=== PATIENT | male | born 1950 | race Caucasian/White ===

== ENCOUNTER 2016-09-21 07:43 | Emergency (ER) | payer MEDICAID ==
[2016-09-21 07:49] VITALS: RESP 14; TEMP 98.4; O2SAT 94
[2016-09-21] MEDS ORDERED: OXYCODONE/APAP 5/325 TAB PO ONE (08:44)
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
[2016-09-21] MEDS ORDERED: SULFAMETHOX/TMP 800/160 MG 1 TAB PO ONE (11:09)
[2016-09-21] MEDS ORDERED: CEPHALEXIN 500 MG CAP PO ONE (11:09)
[2016-09-21 12:01] VITALS: BP 142/78; PULSE 70
== END 2016-09-21 12:10 | disposition home or self-care (01) ==
DX: I87.2 Venous insufficiency (chronic) (peripheral) (principal); L03.115 Cellulitis of right lower limb; L03.116 Cellulitis of left lower limb; F17.200 Nicotine dependence, unspecified, uncomplicated

== ENCOUNTER 2017-05-05 02:13 | Emergency (ER) | payer OTHER, MEDICAID ==
--- NOTE | 2017-05-05 02:18 | EDPHY ---
H & P HPI/ROS: HPI CHIEF COMPLAINT: Alcohol intoxication, medical clearance for fpc HISTORY OF PRESENT ILLNESS: Patient is a 67-year-old male, he is brought in by EMS intoxicated with alcohol, however has a steady gait, answers my questions appropriately and has a warrant for his rest and is brought in for medical clearance for fpc. Patient here complaining of chronic bilateral leg pain. Past Medical History: Chronic venous stasis, peripheral vascular disease, alcoholism, homelessness chronic left leg wound. Past Surgical History: No recent surgery Social History: Homeless, daily alcohol use. Family History: Noncontributory ROS REVIEW OF SYSTEMS: A comprehensive 10 point review of systems is otherwise negative aside from elements mentioned in the history of present illness. Exam Constitutional appears well nontoxic, triage nursing summary reviewed, vital signs reviewed, awake/alert. Eyes normal conjunctivae and sclera, EOMI, PERRLA. HENT normal inspection, atraumatic, moist mucus membranes, no epistaxis, neck supple/ no meningismus, no raccoon eyes. Respiratory clear to auscultation bilaterally, normal breath sounds, no respiratory distress, no wheezing. Cardiovascular rate normal, regular rhythm, no murmur, no edema, distal pulses normal. Gastrointestinal soft, non-tender, no rebound, no guarding, normal bowel sounds, no distension, no pulsatile mass. Genitourinary no CVA tenderness. Musculoskeletal no midline vertebral tenderness, full range of motion, no calf swelling, no tenderness of extremities, no meningismus, good pulses, neurovascularly intact. Bilateral lower extremities are swollen. Worse on the right than left. Chronic pitting edema. The left lower extremity lateral aspect distal aspect shows a chronic healing wound. We have changes Jovan wrap and dressing. There is no russell pus. There is some mild erythema around it. Skin pink, warm, & dry, no rash, skin atraumatic. Neurologic awake, alert and oriented x 3, AAOx3, moves all 4 extremities equally, motor intact, sensory intact, CN II-XII intact, normal cerebellar, normal vision, normal speech. Psychiatric normal mood/affect. Heme/Lymph/Immune no lymphadenopathy. Differential Diagnosis: Includes but is not limited to in a particular order acute alcohol intoxication, chronic venous stasis, chronic peripheral disease, left lower extremity ulcer chronic Medical Decision Making: Plan for this patient check his vitals, medically cleared for fpc. Will evaluate his legs to make sure there is not an active infection. Re-evaluation: 0221: This patient is a chronic left lower extremity leg wound. Does not appear overtly infected to me. There is no crepitus. We have changed his dressing. There is mild erythema around it. This appears to be chronic. Will place on Keflex. I have medically cleared for fpc. 0235: Patient re-evaluated we did clean his left lower extremity leg wound. Mild erythema no russell purulence. No significant warmth. I will place on Keflex for coverage of this erythema. I do not feel that he needs to be hospitalized. Does not have a fever. He appears well otherwise. Nontoxic appearing. Vital signs are stable. He will be medically cleared for fpc. New dressing applied. Source: Patient, Police, EMS - Medical/Surgical History Hx Asthma: No Hx Chronic Respiratory Disease: No Hx Diabetes: No Hx Cardiac Disease: No Hx Renal Disease: No Hx Cirrhosis: No Hx Alcoholism: No Hx HIV/AIDS: No Hx Splenectomy or Spleen Trauma: No Other PMH: 1. Peripheral vascular disease. 2. Chronic venous stasis ulceration of lower extremities. 3. Alcoholism. 4. Tobacco abuse - Social History Smoking Status: Current every day smoker Constitutional: Initial Vital Signs Temperature (C) 36.7 C 05/05/17 02:18 Heart Rate 90 05/05/17 02:18 Respiratory Rate 16 05/05/17 02:18 Blood Pressure 103/80 05/05/17 02:18 O2 Sat (%) 93 05/05/17 02:18 O2 Delivery Mode Room Air Allergies/Adverse Reactions: No Known Allergies Allergy (Verified 05/05/17 02:18) Home Medications: Medication Instructions Recorded Keflex 05/04/16 Cephalexin [Keflex] 500 mg PO Q6H #28 cap 05/12/16 oxyCODONE CR [Oxycontin] 10 mg PO BID #20 tab 05/12/16 Cephalexin [Keflex] 500 mg PO TID #20 cap 09/21/16 Sulfamethox/Tmp 800/160 mg 1 tab PO BID #14 tab 09/21/16 [Bactrim Ds] Cephalexin [Keflex (*)] 500 mg PO Q6H #28 cap 05/05/17 Departure - Departure Disposition: Home, Routine, Self-Care Clinical Impression: Alcoholic intoxication Qualifiers: Complication of substance-induced condition: uncomplicated Qualified Code(s): F10.920 - Alcohol use, unspecified with intoxication, uncomplicated Wound of left lower extremity Qualifiers: Encounter type: initial encounter Qualified Code(s): S81.802A - Unspecified open wound, left lower leg, initial encounter Condition: Good Instructions: Alcohol Intoxication (ED) Additional Instructions: 1. Medically cleared for fpc. Referrals: Patient,NotPresent [Unknown] - As per Instructions Prescriptions: Cephalexin [Keflex (*)] 500 mg PO Q6H #28 cap
--- NOTE | 2017-05-05 02:18 | EDPHY ---
H & P HPI/ROS: HPI CHIEF COMPLAINT: Alcohol intoxication, medical clearance for senior care HISTORY OF PRESENT ILLNESS: Patient is a 67-year-old male, he is brought in by EMS intoxicated with alcohol, however has a steady gait, answers my questions appropriately and has a warrant for his rest and is brought in for medical clearance for senior care. Patient here complaining of chronic bilateral leg pain. Past Medical History: Chronic venous stasis, peripheral vascular disease, alcoholism, homelessness chronic left leg wound. Past Surgical History: No recent surgery Social History: Homeless, daily alcohol use. Family History: Noncontributory ROS REVIEW OF SYSTEMS: A comprehensive 10 point review of systems is otherwise negative aside from elements mentioned in the history of present illness. Exam Constitutional appears well nontoxic, triage nursing summary reviewed, vital signs reviewed, awake/alert. Eyes normal conjunctivae and sclera, EOMI, PERRLA. HENT normal inspection, atraumatic, moist mucus membranes, no epistaxis, neck supple/ no meningismus, no raccoon eyes. Respiratory clear to auscultation bilaterally, normal breath sounds, no respiratory distress, no wheezing. Cardiovascular rate normal, regular rhythm, no murmur, no edema, distal pulses normal. Gastrointestinal soft, non-tender, no rebound, no guarding, normal bowel sounds, no distension, no pulsatile mass. Genitourinary no CVA tenderness. Musculoskeletal no midline vertebral tenderness, full range of motion, no calf swelling, no tenderness of extremities, no meningismus, good pulses, neurovascularly intact. Bilateral lower extremities are swollen. Worse on the right than left. Chronic pitting edema. The left lower extremity lateral aspect distal aspect shows a chronic healing wound. We have changes Jovan wrap and dressing. There is no russell pus. There is some mild erythema around it. Skin pink, warm, & dry, no rash, skin atraumatic. Neurologic awake, alert and oriented x 3, AAOx3, moves all 4 extremities equally, motor intact, sensory intact, CN II-XII intact, normal cerebellar, normal vision, normal speech. Psychiatric normal mood/affect. Heme/Lymph/Immune no lymphadenopathy. Differential Diagnosis: Includes but is not limited to in a particular order acute alcohol intoxication, chronic venous stasis, chronic peripheral disease, left lower extremity ulcer chronic Medical Decision Making: Plan for this patient check his vitals, medically cleared for senior care. Will evaluate his legs to make sure there is not an active infection. Re-evaluation: 0221: This patient is a chronic left lower extremity leg wound. Does not appear overtly infected to me. There is no crepitus. We have changed his dressing. There is mild erythema around it. This appears to be chronic. Will place on Keflex. I have medically cleared for senior care. 0235: Patient re-evaluated we did clean his left lower extremity leg wound. Mild erythema no russell purulence. No significant warmth. I will place on Keflex for coverage of this erythema. I do not feel that he needs to be hospitalized. Does not have a fever. He appears well otherwise. Nontoxic appearing. Vital signs are stable. He will be medically cleared for senior care. New dressing applied. Source: Patient, Police, EMS - Medical/Surgical History Hx Asthma: No Hx Chronic Respiratory Disease: No Hx Diabetes: No Hx Cardiac Disease: No Hx Renal Disease: No Hx Cirrhosis: No Hx Alcoholism: No Hx HIV/AIDS: No Hx Splenectomy or Spleen Trauma: No Other PMH: 1. Peripheral vascular disease. 2. Chronic venous stasis ulceration of lower extremities. 3. Alcoholism. 4. Tobacco abuse - Social History Smoking Status: Current every day smoker Constitutional: Initial Vital Signs Temperature (C) 36.7 C 05/05/17 02:18 Heart Rate 90 05/05/17 02:18 Respiratory Rate 16 05/05/17 02:18 Blood Pressure 103/80 05/05/17 02:18 O2 Sat (%) 93 05/05/17 02:18 O2 Delivery Mode Room Air Allergies/Adverse Reactions: No Known Allergies Allergy (Verified 05/05/17 02:18) Home Medications: Medication Instructions Recorded Keflex 05/04/16 Cephalexin [Keflex] 500 mg PO Q6H #28 cap 05/12/16 oxyCODONE CR [Oxycontin] 10 mg PO BID #20 tab 05/12/16 Cephalexin [Keflex] 500 mg PO TID #20 cap 09/21/16 Sulfamethox/Tmp 800/160 mg 1 tab PO BID #14 tab 09/21/16 [Bactrim Ds] Cephalexin [Keflex (*)] 500 mg PO Q6H #28 cap 05/05/17 Departure - Departure Disposition: Home, Routine, Self-Care Clinical Impression: Alcoholic intoxication Qualifiers: Complication of substance-induced condition: uncomplicated Qualified Code(s): F10.920 - Alcohol use, unspecified with intoxication, uncomplicated Wound of left lower extremity Qualifiers: Encounter type: initial encounter Qualified Code(s): S81.802A - Unspecified open wound, left lower leg, initial encounter Condition: Good Instructions: Alcohol Intoxication (ED) Additional Instructions: 1. Medically cleared for senior care. Referrals: Patient,NotPresent [Unknown] - As per Instructions Prescriptions: Cephalexin [Keflex (*)] 500 mg PO Q6H #28 cap
--- NOTE | 2017-05-05 02:18 | EDPHY ---
H & P HPI/ROS: HPI CHIEF COMPLAINT: Alcohol intoxication, medical clearance for fdc HISTORY OF PRESENT ILLNESS: Patient is a 67-year-old male, he is brought in by EMS intoxicated with alcohol, however has a steady gait, answers my questions appropriately and has a warrant for his rest and is brought in for medical clearance for fdc. Patient here complaining of chronic bilateral leg pain. Past Medical History: Chronic venous stasis, peripheral vascular disease, alcoholism, homelessness chronic left leg wound. Past Surgical History: No recent surgery Social History: Homeless, daily alcohol use. Family History: Noncontributory ROS REVIEW OF SYSTEMS: A comprehensive 10 point review of systems is otherwise negative aside from elements mentioned in the history of present illness. Exam Constitutional appears well nontoxic, triage nursing summary reviewed, vital signs reviewed, awake/alert. Eyes normal conjunctivae and sclera, EOMI, PERRLA. HENT normal inspection, atraumatic, moist mucus membranes, no epistaxis, neck supple/ no meningismus, no raccoon eyes. Respiratory clear to auscultation bilaterally, normal breath sounds, no respiratory distress, no wheezing. Cardiovascular rate normal, regular rhythm, no murmur, no edema, distal pulses normal. Gastrointestinal soft, non-tender, no rebound, no guarding, normal bowel sounds, no distension, no pulsatile mass. Genitourinary no CVA tenderness. Musculoskeletal no midline vertebral tenderness, full range of motion, no calf swelling, no tenderness of extremities, no meningismus, good pulses, neurovascularly intact. Bilateral lower extremities are swollen. Worse on the right than left. Chronic pitting edema. The left lower extremity lateral aspect distal aspect shows a chronic healing wound. We have changes Jovan wrap and dressing. There is no russell pus. There is some mild erythema around it. Skin pink, warm, & dry, no rash, skin atraumatic. Neurologic awake, alert and oriented x 3, AAOx3, moves all 4 extremities equally, motor intact, sensory intact, CN II-XII intact, normal cerebellar, normal vision, normal speech. Psychiatric normal mood/affect. Heme/Lymph/Immune no lymphadenopathy. Differential Diagnosis: Includes but is not limited to in a particular order acute alcohol intoxication, chronic venous stasis, chronic peripheral disease, left lower extremity ulcer chronic Medical Decision Making: Plan for this patient check his vitals, medically cleared for fdc. Will evaluate his legs to make sure there is not an active infection. Re-evaluation: 0221: This patient is a chronic left lower extremity leg wound. Does not appear overtly infected to me. There is no crepitus. We have changed his dressing. There is mild erythema around it. This appears to be chronic. Will place on Keflex. I have medically cleared for fdc. 0235: Patient re-evaluated we did clean his left lower extremity leg wound. Mild erythema no russell purulence. No significant warmth. I will place on Keflex for coverage of this erythema. I do not feel that he needs to be hospitalized. Does not have a fever. He appears well otherwise. Nontoxic appearing. Vital signs are stable. He will be medically cleared for fdc. New dressing applied. Source: Patient, Police, EMS - Medical/Surgical History Hx Asthma: No Hx Chronic Respiratory Disease: No Hx Diabetes: No Hx Cardiac Disease: No Hx Renal Disease: No Hx Cirrhosis: No Hx Alcoholism: No Hx HIV/AIDS: No Hx Splenectomy or Spleen Trauma: No Other PMH: 1. Peripheral vascular disease. 2. Chronic venous stasis ulceration of lower extremities. 3. Alcoholism. 4. Tobacco abuse - Social History Smoking Status: Current every day smoker Constitutional: Initial Vital Signs Temperature (C) 36.7 C 05/05/17 02:18 Heart Rate 90 05/05/17 02:18 Respiratory Rate 16 05/05/17 02:18 Blood Pressure 103/80 05/05/17 02:18 O2 Sat (%) 93 05/05/17 02:18 O2 Delivery Mode Room Air Allergies/Adverse Reactions: No Known Allergies Allergy (Verified 05/05/17 02:18) Home Medications: Medication Instructions Recorded Keflex 05/04/16 Cephalexin [Keflex] 500 mg PO Q6H #28 cap 05/12/16 oxyCODONE CR [Oxycontin] 10 mg PO BID #20 tab 05/12/16 Cephalexin [Keflex] 500 mg PO TID #20 cap 09/21/16 Sulfamethox/Tmp 800/160 mg 1 tab PO BID #14 tab 09/21/16 [Bactrim Ds] Cephalexin [Keflex (*)] 500 mg PO Q6H #28 cap 05/05/17 Departure - Departure Disposition: Home, Routine, Self-Care Clinical Impression: Alcoholic intoxication Qualifiers: Complication of substance-induced condition: uncomplicated Qualified Code(s): F10.920 - Alcohol use, unspecified with intoxication, uncomplicated Wound of left lower extremity Qualifiers: Encounter type: initial encounter Qualified Code(s): S81.802A - Unspecified open wound, left lower leg, initial encounter Condition: Good Instructions: Alcohol Intoxication (ED) Additional Instructions: 1. Medically cleared for fdc. Referrals: Patient,NotPresent [Unknown] - As per Instructions Prescriptions: Cephalexin [Keflex (*)] 500 mg PO Q6H #28 cap
[2017-05-05 02:20] VITALS: BP 103/80; PULSE 90; RESP 16; TEMP 98.1; O2SAT 93
== END 2017-05-05 02:44 ==
LOC: EDUNIT#
DX: S81.802A Unspecified open wound, left lower leg, initial encounter (principal); F10.229 Alcohol dependence with intoxication, unspecified; F17.200 Nicotine dependence, unspecified, uncomplicated; X58.XXXA Exposure to other specified factors, initial encounter; Y92.9 Unspecified place or not applicable; Z59.0 Homelessness

== ENCOUNTER 2017-11-29 23:11 | Emergency (ER) | payer MEDICAID, OTHER ==
--- NOTE | 2017-11-29 23:58 | EDPHY ---
H & P Stated Complaint: EtOH Time Seen by Provider: 11/29/17 23:36 HPI/ROS: HPI The patient presents with alcohol intoxication brought in for medical evaluation. He is brought in by EMS after police were called because he was intoxicated in public. Patient admits to drinking several alcoholic drinks tonight and had vodka on him when police picked him up. He has multiple ED visits for alcohol intoxication. He is complaining of left leg pain and leg wound. He says he has leg pain frequently and has been evaluated for this. He has a chronic venous stasis ulcer. Looking at his external records, he has multiple ER visits for alcohol intoxication and left leg pain. It does not seem that his leg wound or pain is any worse than usual based on these records. He does not have a fever, numbness or tingling of his leg. REVIEW OF SYSTEMS Constitutional: No fever, no chills. Eyes: No discharge. ENT: No sore throat. Cardiovascular: No chest pain, no palpitations. Respiratory: No cough, no shortness of breath. Gastrointestinal: No abdominal pain, no vomiting. Genitourinary: No hematuria. Musculoskeletal: No back pain. Skin: No rashes. Neurological: No headache. PMHx: Chronic venous stasis Soc Hx: Homeless, alcohol abuse, cigarette smoker PHYSICAL General Appearance: Obviously intoxicated in no acute distress Eyes: Pupils equal and round no pallor or injection ENT, Mouth: Mucous membranes moist Respiratory: There are no retractions, lungs are clear to auscultation Cardiovascular: Regular rate and rhythm Gastrointestinal: Abdomen is soft and non-tender, no masses, bowel sounds normal Neurological: A&O, moves all extremities Skin: Warm and dry, no rashes Musculoskeletal: Neck is supple non tender Extremities: Left leg is edematous, with 6 cm x 3 cm ulceration of the left lower lateral leg, base of ulcer with granulation tissue, there is no discharge expressed the leg is warm, sensation is intact to light touch Psychiatric: Patient is oriented X 3, there is no agitation Source: Patient, EMS, Old records Exam Limitations: Intoxication - Personal History Current Tetanus Diphtheria and Acellular Pertussis (TDAP): Unsure - Medical/Surgical History Hx Asthma: No Hx Chronic Respiratory Disease: No Hx Diabetes: No Hx Cardiac Disease: No Hx Renal Disease: No Hx Cirrhosis: No Hx Alcoholism: No Hx HIV/AIDS: No Hx Splenectomy or Spleen Trauma: No Other PMH: 1. Peripheral vascular disease. 2. Chronic venous stasis ulceration of lower extremities. 3. Alcoholism. 4. Tobacco abuse - Social History Smoking Status: Current every day smoker Constitutional: Initial Vital Signs Temperature (C) 36.4 C 11/29/17 23:15 Heart Rate 74 11/29/17 23:15 Respiratory Rate 16 11/29/17 23:15 Blood Pressure 131/74 H 11/29/17 23:15 O2 Sat (%) 96 11/29/17 23:15 O2 Delivery Mode Room Air Allergies/Adverse Reactions: No Known Allergies Allergy (Verified 11/29/17 23:15) Home Medications: Medication Instructions Recorded Keflex 05/04/16 oxyCODONE CR [Oxycontin] 10 mg PO BID #20 tab 05/12/16 Sulfamethox/Tmp 800/160 mg 1 tab PO BID #14 tab 09/21/16 [Bactrim Ds] Medical Decision Making Differential Diagnosis: 67-year-old male with history of alcohol intoxication, peripheral vascular disease, chronic left leg wound presents brought in by ambulance for medical clearance for the [facility]. He is clearly intoxicated, vital signs are unremarkable. He does have what appears to be a chronic left lower extremity wound related to vascular insufficiency with no sign of superinfection. He has warmth to his foot, full range of motion of his toes, no numbness or tingling to suggest ischemic limb. Plan for wound care to be performed here. Wound was cleansed and dressing was applied. The patient is not accepted at the [facility] because of prior history there. He was allowed to sleep in the emergency department until he was clinically sober and then he was discharged. Departure - Departure Disposition: Home, Routine, Self-Care Clinical Impression: Venous stasis ulcer Qualifiers: Venous stasis ulcer site: other part of lower leg Varicose vein presence: without varicose veins Laterality: left Non-pressure ulcer stage: with muscle involvement without evidence of necrosis Qualified Code(s): I87.2 - Venous insufficiency (chronic) (peripheral) Alcoholic intoxication Qualifiers: Complication of substance-induced condition: with delirium Qualified Code(s): F10.921 - Alcohol use, unspecified with intoxication delirium Condition: Good Instructions: Alcohol Intoxication (ED), Venous Insufficiency (DC), Chronic Wounds (ED) Referrals: [facility] [Outside] - As per Instructions
[2017-11-30] MEDS ORDERED: CHLORDIAZEPOXIDE 25MG PREPK#6 BTL TAKEHOME ONE (01:58)
[2017-11-30 06:23] VITALS: BP 131/74
== END 2017-11-30 06:23 | disposition home or self-care (01) ==
LOC: EDUNIT# → EDBD
DX: F10.921 Alcohol use, unspecified with intoxication delirium (principal); I87.2 Venous insufficiency (chronic) (peripheral); F17.210 Nicotine dependence, cigarettes, uncomplicated

== ENCOUNTER 2018-05-18 20:24 | Emergency (ER) | payer OTHER ==
--- NOTE | 2018-05-18 20:31 | EDPHY ---
H & P Time Seen by Provider: 05/18/18 20:31 HPI/ROS: HPI CHIEF COMPLAINT: Alcohol intoxication HISTORY OF PRESENT ILLNESS: This is a very pleasant 68-year-old male he arrives to the emergency room by EMS on an [facility] hold for acute alcohol intoxication. Patient was contacted his private residence. He was found slurring speech unsteady gait. Highly intoxicated alcohol the bottle vodka. He was brought in emergency room by EMS. He arrives intoxicated with alcohol. This time has no complaints. Past Medical History: Alcoholism Past Surgical History: Vein stripping Social History: Alcoholism with daily alcohol use. Family History: Noncontributory ROS REVIEW OF SYSTEMS: 10 Systems were reviewed and negative with the exception of the elements mentioned in the history of present illness. Exam Constitutional intoxicated, smells of alcohol, slurring speech triage nursing summary reviewed, vital signs reviewed, awake/alert. Eyes normal conjunctivae and sclera, EOMI, PERRLA. HENT normal inspection, atraumatic, moist mucus membranes, no epistaxis, neck supple/ no meningismus, no raccoon eyes. Respiratory clear to auscultation bilaterally, normal breath sounds, no respiratory distress, no wheezing. Cardiovascular rate normal, regular rhythm, no murmur, no edema, distal pulses normal. Gastrointestinal soft, non-tender, no rebound, no guarding, normal bowel sounds, no distension, no pulsatile mass. Genitourinary no CVA tenderness. Musculoskeletal no midline vertebral tenderness, full range of motion, no calf swelling, no tenderness of extremities, no meningismus, good pulses, neurovascularly intact. Skin pink, warm, & dry, no rash, skin atraumatic. Neurologic awake, alert and oriented x 3, AAOx3, moves all 4 extremities equally, motor intact, sensory intact, CN II-XII intact, normal vision, intoxicated, smells of alcohol slurring speech Psychiatric normal mood/affect. Heme/Lymph/Immune no lymphadenopathy. Differential Diagnosis: Includes but is not limited to in a particular order acute alcohol intoxication, alcohol abuse, dehydration, electrolyte disturbance Medical Decision Making: Plan for this patient breath alcohol. Monitor for worsening of symptoms. Re-evaluation: Breath alcohol level 213. 2214: signed over to Dr. Medrano at 10pm shift change. Patient pending sobriety. [facility]. Source: Patient, EMS - Medical/Surgical History Hx Asthma: No Hx Chronic Respiratory Disease: No Hx Diabetes: No Hx Cardiac Disease: No Hx Renal Disease: No Hx Cirrhosis: No Hx Alcoholism: No Hx HIV/AIDS: No Hx Splenectomy or Spleen Trauma: No Other PMH: 1. Peripheral vascular disease. 2. Chronic venous stasis ulceration of lower extremities. 3. Alcoholism. 4. Tobacco abuse - Social History Smoking Status: Current every day smoker Constitutional: Initial Vital Signs Temperature (C) 36 C 05/18/18 20:37 Heart Rate 77 05/18/18 20:37 Respiratory Rate 16 05/18/18 20:37 Blood Pressure 136/86 H 05/18/18 20:37 O2 Sat (%) 93 05/18/18 20:37 O2 Delivery Mode Room Air Allergies/Adverse Reactions: No Known Allergies Allergy (Verified 05/18/18 20:37) Home Medications: Medication Instructions Recorded NK [No Known Home Meds] 05/18/18 Departure - Departure Disposition: Home, Routine, Self-Care Clinical Impression: Alcoholic intoxication Qualifiers: Complication of substance-induced condition: uncomplicated Qualified Code(s): F10.920 - Alcohol use, unspecified with intoxication, uncomplicated Condition: Good Instructions: Alcohol Intoxication (ED), Abuse of Alcohol (ED) Referrals: NONE *PRIMARY CARE P,. [Primary Care Provider] - As per Instructions
[2018-05-19 05:49] VITALS: BP 154/74
== END 2018-05-19 05:54 | disposition home or self-care (01) ==
DX: F10.920 Alcohol use, unspecified with intoxication, uncomplicated (principal)

== ENCOUNTER 2018-08-09 23:51 | Emergency (ER) | payer OTHER ==
--- NOTE | 2018-08-09 23:58 | EDPHY ---
H & P Time Seen by Provider: 08/09/18 23:54 HPI/ROS: Chief Complaint: Alcohol intoxication HPI: 68-year-old homeless male with a history of chronic lymphedema, left greater than right secondary to past vein stripping. Patient also has an extensive history of chronic alcoholism. [place] the 05 24 bus. He called 911 complaining that "everything hurts". He has had multiple presentations to this hospital in the past for similar episodes. Denies any falls. Admits to drinking 2 pt of vodka this evening. No falls or head injury. No chest pain shortness of breath. No nausea or vomiting. ROS: 10 systems were reviewed and were negative except those elements noted in the HPI. PMH: Chronic lymphedema, chronic alcoholism Social History: No smoking, heavy daily alcohol, no recreational drug use Family History: non-contributory Physical Exam: Gen: Awake, Alert, No Distress HEENT: Nose: no rhinorrhea Eyes: PERRLA, EOMI Mouth: Moist mucosa Neck: Supple, no JVD Chest: nontender, lungs clear to auscultation Heart: S1, S2 normal, no murmur Abd: Soft, non-tender, no guarding Back: no CVA tenderness, no midline tenderness Ext: Moderate edema, healing ulcerative lesion on his left lateral leg which is chronic. No surrounding erythema. Skin: no rash Neuro: CN II-XII intact, Sensation grossly intact, Strength 5/5 in bilateral upper and lower extremities - Medical/Surgical History Hx Asthma: No Hx Chronic Respiratory Disease: No Hx Diabetes: No Hx Cardiac Disease: No Hx Renal Disease: No Hx Cirrhosis: No Hx Alcoholism: No Hx HIV/AIDS: No Hx Splenectomy or Spleen Trauma: No Other PMH: 1. Peripheral vascular disease. 2. Chronic venous stasis ulceration of lower extremities. 3. Alcoholism. 4. Tobacco abuse - Social History Smoking Status: Current every day smoker Constitutional: Initial Vital Signs Temperature (C) 36.7 C 08/09/18 23:55 Heart Rate 70 08/09/18 23:55 Respiratory Rate 20 08/09/18 23:55 Blood Pressure 139/94 H 08/09/18 23:55 O2 Sat (%) 94 08/09/18 23:55 O2 Delivery Mode Room Air Allergies/Adverse Reactions: No Known Allergies Allergy (Verified 11/14/18 20:37) Departure - Departure Disposition: Home, Routine, Self-Care Clinical Impression: Leg ulcer, Alcoholic intoxication, Alcohol dependence Condition: Good Instructions: Alcohol Intoxication (ED), Stasis Dermatitis (ED) Additional Instructions: Follow up at [facility] in 2-3 days for wound check. Referrals: [facility],. [Clinic] - As per Instructions
[2018-08-10 04:35] VITALS: BP 143/76
== END 2018-08-10 04:34 | disposition home or self-care (01) ==
LOC: EDUNIT#
DX: L97.929 Non-pressure chronic ulcer of unspecified part of left lower leg with unspecified severity (principal); F10.220 Alcohol dependence with intoxication, uncomplicated; I73.9 Peripheral vascular disease, unspecified

== ENCOUNTER 2018-09-11 01:39 | Inpatient (IN) | payer OTHER ==
[2018-09-11] MEDS ORDERED: VANCOMYCIN 1.5 GM in D5W 250 ML IV ONE (01:45)
--- NOTE | 2018-09-11 01:48 | EDPHY ---
H & P Stated Complaint: chronic left lower leg swelling, now with pain Time Seen by Provider: 09/11/18 01:46 HPI/ROS: HPI CHIEF COMPLAINT: Worsening left leg pain. HISTORY OF PRESENT ILLNESS: Patient is 68-year-old male, history of peripheral vascular disease, chronic lymphedema, and alcoholism, presents emergency room with left lower extremity worsening edema, pain, foul smell, drainage. Patient arrived to the emergency room by EMS with worsening left leg pain and swelling. He arrives to the emergency room is hemodynamically stable but complaining Of left leg pain. On exam here he has chronic lymphedema bilaterally, the left leg was wrapped in a dressing that has not been changed in a while, there is a foul odor with yellow drainage and pus. He is a rather large wound to the anterior lateral left lower extremity. Past Medical History: Alcoholism, peripheral vascular disease, venous stasis, chronic leg wound Past Surgical History: No recent surgery Social History: Homeless with daily alcohol use. Family History: Noncontributory ROS REVIEW OF SYSTEMS: 10 Systems were reviewed and negative with the exception of the elements mentioned in the history of present illness. Exam Constitutional triage nursing summary reviewed, vital signs reviewed, awake/ alert. Eyes normal conjunctivae and sclera, EOMI, PERRLA. HENT normal inspection, atraumatic, moist mucus membranes, no epistaxis, neck supple/ no meningismus, no raccoon eyes. Respiratory clear to auscultation bilaterally, normal breath sounds, no respiratory distress, no wheezing. Cardiovascular rate normal, regular rhythm, no murmur, no edema, distal pulses normal. Gastrointestinal soft, non-tender, no rebound, no guarding, normal bowel sounds, no distension, no pulsatile mass. Genitourinary no CVA tenderness. Musculoskeletal left lower extremity: Chronic lymphedema, 4+ pitting, anterior mid lateral left leg wound with foul smell and yellow/pus. No crepitus. no midline vertebral tenderness, full range of motion, no calf swelling, no tenderness of extremities, no meningismus, good pulses, neurovascularly intact. Skin pink, warm, & dry, no rash, skin atraumatic. Neurologic awake, alert and oriented x 3, AAOx3, moves all 4 extremities equally, motor intact, sensory intact, CN II-XII intact, normal cerebellar, normal vision, normal speech. Psychiatric normal mood/affect. Heme/Lymph/Immune no lymphadenopathy. Differential Diagnosis: Includes but is not limited to in a particular order left lower extremity cellulitis, left lower extremity chronic wound, abscess, chronic wound, wound infection, strep infection, MRSA infection Medical Decision Making: Plan for this patient IV establishment with blood cultures, lactic acid, inflammatory markers, x-ray left lower extremity, IV Vanco admission to the hospital. Re-evaluation: Left lower extremity x-ray reviewed negative for gas however ulcer seen on x- ray. Hardware in the ankle. Patient's labs reviewed. Patient noted to have a low white blood cell count. Patient's alcohol level elevated 361. [id number]: Spoke with Hospalist service, agree to admit. Dr. Alarcon. Source: Patient, EMS - Personal History Current Tetanus/Diphtheria Vaccine: Yes Current Tetanus Diphtheria and Acellular Pertussis (TDAP): Yes Tetanus Vaccine Date: 2015 - Medical/Surgical History Hx Asthma: No Hx Chronic Respiratory Disease: No Hx Diabetes: No Hx Cardiac Disease: No Hx Renal Disease: No Hx Cirrhosis: No Hx Alcoholism: No Hx HIV/AIDS: No Hx Splenectomy or Spleen Trauma: No Other PMH: 1. Peripheral vascular disease. 2. Chronic venous stasis ulceration of lower extremities. 3. Alcoholism. 4. Tobacco abuse - Social History Smoking Status: Current every day smoker Constitutional: Initial Vital Signs Temperature (C) 36.4 C 09/11/18 01:40 Heart Rate 69 09/11/18 01:40 Respiratory Rate 18 09/11/18 01:40 Blood Pressure 136/100 H 09/11/18 01:40 O2 Sat (%) 93 09/11/18 01:40 O2 Delivery Mode Nasal Cannula O2 (L/minute) 2 Allergies/Adverse Reactions: No Known Allergies Allergy (Verified 09/11/18 19:32) Home Medications: Medication Instructions Recorded oxyCODONE HCL [Oxycodone HCl] 10 mg PO TID PRN 09/11/18 Medical Decision Making - Data Points Laboratory Results: Laboratory Results 09/11/18 03:15 09/11/18 03:15 09/11/18 09/11/18 03:15 03:15 RPR Resp to Therapy Pending Hepatitis A Ab Total Pending HIV 1&2 Antibody Pending Medications Given: Folic Acid (Folic Acid) 1 mg PO DAILY MICAH Stop: 03/10/19 08:59 Last Admin: 09/11/18 10:00 Dose: Not Given Vancomycin HCl 1.5 gm/ Sodium (Chloride) 250 mls @ 166.667 mls/hr IV Q12H MICAH Stop: 10/11/18 15:59 Last Admin: 09/11/18 15:54 Dose: 250 mls Lorazepam (Ativan Injection) 0 mg IVP Q1H PRN; Protocol PRN Reason: Alcohol Withdrawal w/IV access Stop: 03/10/19 04:22 Last Admin: 09/11/18 06:38 Dose: 2 mg Multivitamins (Tab-A-Yoanna) 1 each PO DAILY MICAH Stop: 03/10/19 08:59 Last Admin: 09/11/18 10:00 Dose: Not Given Oxycodone HCl (Oxycodone Ir) 5 - 10 mg PO Q3HRS PRN PRN Reason: Pain, Severe Able to Take PO Stop: 09/21/18 04:21 Last Admin: 09/11/18 22:51 Dose: 10 mg Discontinued Medications Vancomycin HCl 1.5 gm/ Sodium (Chloride) 250 mls @ 166.67 mls/hr IV EDNOW ONE PRN Reason: Protocol Stop: 09/11/18 05:29 Last Admin: 09/11/18 03:52 Dose: 250 mls Departure - Departure Disposition: [facility] Clinical Impression: Venous stasis ulcer, Alcoholic intoxication Condition: Fair
[2018-09-11 03:54] LABS: PLATELET COUNT 65 10^3/uL (150-400)
[2018-09-11 03:55] LABS: INR 1.3 (0.83-1.16); PROTIME(PATIENT) 15.6 SEC (12.0-15.0)
[2018-09-11] MEDS ORDERED: VANCOMYCIN 1.5 GM in NS 250 ML IV ONE (04:00)
[2018-09-11] MEDS ORDERED: ONDANSETRON 4 MG/2 ML VIAL IVP PRN (04:22)
[2018-09-11] MEDS ORDERED: ONDANSETRON DISINTEGRATING 4 MG TAB PO PRN (04:22)
[2018-09-11] MEDS ORDERED: FLUMAZENIL 0.5 MG/5 ML MDV IVP PRN (04:23)
[2018-09-11] MEDS ORDERED: LORazepam 2 MG/ML INJ IVP PRN (04:23)
--- NOTE | 2018-09-11 05:43 | PDGENHP ---
History and Physical - Chief Complaint L leg pain - History of Present Illness 68 yo M w/ hx of PVD, cirrhosis, MRSA, non-healing ulcer of LLE, and AF presents with LLE pain. The patient presented via EMS reporting LLE pain, purulent discharge, and foul smell. During my evaluation the patient is fairly somnolent and not answering my questions. In the ED his evaluation was reassuring. He is afebrile with a normal WBC. He has a large, non-healing ulcer of the LLE with purulent discharge and surrounding erythema. He is hemodynamically stable. His BAL is elevated. He is being admitted for presumed cellulitis. Review of previous records in [facility] demonstrates multiple prior visits at other hospitals for complications of this non-healing ulcer. Records notable for hx of MRSA as well. Case discussed with ED physician Dr. Arriaga. History Information - Allergies/Home Medication List Allergies/Adverse Reactions: No Known Allergies Allergy (Verified 09/11/18 01:46) Home Medications: NK [No Known Home Meds] 09/11/18 [Last Taken Unknown] oxyCODONE HCL/ACETAMINOPHEN [Percocet 5-325 mg Tablet] 1 each PO 09/11/18 [Last Taken Unknown] I have personally reviewed and updated: family history, medical history - Past Medical History atrial fibrillation Additional medical history: Cirrhosis. Hep C. Peripheral vascular disease. ETOH use d/o - Surgical History Additional surgical history: ORIF L ankle - Family History Additional family history: Unable to obtain due to patient's mental status - Social History Smoking Status: Current every day smoker Review of Systems Review of Systems: Unable to obtain due to patient's mental status Physical Exam Physical Exam: Temp Pulse Resp BP Pulse Ox 36.4 C 61 18 148/93 H 96 09/11/18 01:40 09/11/18 03:53 09/11/18 03:53 09/11/18 03:53 09/11/18 03:57 Constitutional: chronically ill appearing, unkempt Eyes: PERRL, EOMI Ears, Nose, Mouth, Throat: moist mucous membranes, no oral mucosal ulcers Cardiovascular: regular rate and rhythym, systolic murmur Respiratory: no respiratory distress, no rales or rhonchi Gastrointestinal: normoactive bowel sounds, soft, non-tender abdomen Skin: warm, other (Large ulcer LLE with purulent drainage and surrounding erythema) Musculoskeletal: normal joint ROM, no joint effusions Neurologic: No weakness, No numbness Psychiatric: encephalopathic, poor memory Lab Data & Imaging Review 09/11/18 03:15 09/11/18 03:15 WBC 3.74 10^3/uL (3.80-9.50) L 09/11/18 03:15 RBC 4.91 10^6/uL (4.40-6.38) 09/11/18 03:15 Hgb 12.5 g/dL (13.7-17.5) L 09/11/18 03:15 Hct 41.2 % (40.0-51.0) 09/11/18 03:15 MCV 83.9 fL (81.5-99.8) 09/11/18 03:15 MCH 25.5 pg (27.9-34.1) L 09/11/18 03:15 MCHC 30.3 g/dL (32.4-36.7) L 09/11/18 03:15 RDW 21.7 % (11.5-15.2) H 09/11/18 03:15 Plt Count 65 10^3/uL (150-400) L 09/11/18 03:15 MPV 10.5 fL (8.7-11.7) 09/11/18 03:15 Neut % (Auto) 51.7 % (39.3-74.2) 09/11/18 03:15 Lymph % (Auto) 30.2 % (15.0-45.0) 09/11/18 03:15 Cocke % (Auto) 12.3 % (4.5-13.0) 09/11/18 03:15 Eos % (Auto) 4.8 % (0.6-7.6) 09/11/18 03:15 Baso % (Auto) 0.5 % (0.3-1.7) 09/11/18 03:15 Nucleat RBC Rel Count 0.0 % (0.0-0.2) 09/11/18 03:15 Absolute Neuts (auto) 1.93 10^3/uL (1.70-6.50) 09/11/18 03:15 Absolute Lymphs (auto) 1.13 10^3/uL (1.00-3.00) 09/11/18 03:15 Absolute Monos (auto) 0.46 10^3/uL (0.30-0.80) 09/11/18 03:15 Absolute Eos (auto) 0.18 10^3/uL (0.03-0.40) 09/11/18 03:15 Absolute Basos (auto) 0.02 10^3/uL (0.02-0.10) 09/11/18 03:15 Absolute Nucleated RBC 0.00 10^3/uL (0-0.01) 09/11/18 03:15 Immature Gran % 0.5 % (0.0-1.1) 09/11/18 03:15 Immature Gran # 0.02 10^3/uL (0.00-0.10) 09/11/18 03:15 Platelet Estimate DECREASED (ADEQ) L 09/11/18 03:15 Hypochromasia 1+ H 09/11/18 03:15 Oval Macrocytes 1+ H 09/11/18 03:15 ESR 23 MM/HR (0-20) H 09/11/18 03:15 PT 15.6 SEC (12.0-15.0) H 09/11/18 03:15 INR 1.30 (0.83-1.16) H 09/11/18 03:15 APTT 31.2 SEC (23.0-38.0) 09/11/18 03:15 Sodium 148 mEq/L (135-145) H 09/11/18 03:15 Potassium 4.1 mEq/L (3.5-5.2) 09/11/18 03:15 Chloride 112 mEq/L (97-110) H 09/11/18 03:15 Carbon Dioxide 27 mEq/l (22-31) 09/11/18 03:15 Anion Gap 9 mEq/L (6-14) 09/11/18 03:15 BUN 12 mg/dL (7-23) 09/11/18 03:15 Creatinine 0.8 mg/dL (0.7-1.3) 09/11/18 03:15 Estimated GFR > 60 09/11/18 03:15 Glucose 105 mg/dL (70-100) H 09/11/18 03:15 Calcium 8.6 mg/dL (8.5-10.4) 09/11/18 03:15 C-Reactive Protein < 5.0 mg/L (<10.0) 09/11/18 03:15 Ethyl Alcohol 361 mg/dL (0-10) H 09/11/18 03:15 Assessment & Plan Assessment: 68 yo M w/ hx of PVD, cirrhosis, MRSA, non-healing ulcer of LLE, and AF presents with cellulitis of non-healing ulcer. Plan: 1. Cellulitis - Involving chronic, non-healing ulcer of LLE. Review of outside records describes this as related to venous insufficiency. He has hx of ORIF to L ankle with hardware in place and also culture data positive for MRSA. - Vancomycin IV - Blood cultures ordered - ID and wound care consults placed - May need surgical consultation for I&D 2. ETOH use d/o - BAL 361 on admission. He is not showing any signs of withdrawal at this point but he is very high risk for this. - CIWA protocol ordered - Daily MVI, folate, thiamine 3. Cirrhosis - Due to ETOH And Hep C. Leukopenia and thrombocytopenia noted on laboratory work-up are likely related. - Will check LFTs Diet - Regular Code - Full Ppx - SCDs noting thrombocytopenia Dispo - Admit under observation status
[2018-09-11] MEDS ORDERED: ENOXAPARIN 40 MG/0.4 ML SYR SC SCH (09:00)
[2018-09-11] MEDS: FOLIC ACID 1 MG TAB PO SCH (10:00)
[2018-09-11] MEDS: MULTIVITAMINS 1 EACH TAB PO SCH (10:00)
--- NOTE | 2018-09-11 10:57 | HOSPPROG ---
Hospitalist Progress Note Assessment/Plan: 68 yo M w/ hx of PVD, cirrhosis, MRSA, non-healing ulcer of LLE, and AF presents with cellulitis of non-healing ulcer. First encounter, chart reviewed. * ? LLE cellulitis w associated underlying venous insufficiency, non healing wound -will ask surgery to see, may benefit from debridement -blood cx pending -Vancomycin -has hardware in place to the left ankle area -reviewed tib/fib x ray which shows edema -hx of MRSA *ETOH use -BAL 361 -CIWA, MVI, folate, thiamine -not responding (intoxicated) *Cirrhosis,alcohol induce, hepatitis C *thrombocytopenia, leukopenia *homelessness -patient is disheveled, had vomited *plan: continue abx for now, wound care, reviewed his care w Dr Plaza and Dr Baumann. >30 minutes following up and caring for patient. Subjective: Gary is sleeping, snoring loudly. Objective: Vital Signs Temp Pulse Resp BP Pulse Ox 36.6 C 93 20 118/77 95 09/11/18 07:50 09/11/18 07:50 09/11/18 07:50 09/11/18 07:50 09/11/18 07:50 09/10/18 09/11/18 09/12/18 04:59 05:59 05:59 Intake Total Balance PT 15.6 SEC (12.0-15.0) H 09/11/18 03:15 INR 1.30 (0.83-1.16) H 09/11/18 03:15 - Physical Exam Constitutional: chronically ill appearing, unkempt Cardiovascular: regular rate and rhythym, other (palpable dp pulse, lower ext swelling. Feet wth foul oder) Respiratory: no respiratory distress Gastrointestinal: normoactive bowel sounds, other (large and round) Skin: other (large wound on left lower ext - has some yellowish brown drainage, red around the edges) Neurologic: other (sleeping, intoxicated) ICD10 Worksheet Patient Problems: Problems Problem Status Onset Alcoholic intoxication Acute Venous stasis ulcer Acute
[2018-09-11] MEDS ORDERED: ceFAZolin 2 GM/DEXTROSE 100 ML IV SCH (12:00)
--- NOTE | 2018-09-11 12:55 | GCON ---
[f rep st] CONSULTATION INFECTIOUS DISEASE CONSULT DATE OF CONSULTATION: 09/11/2018 PHYSICIAN REQUESTING CONSULT: Dr. Lj Alarcon REASON FOR CONSULT: To assist in the management of this 68-year-old male with a nonhealing lower extremity ulceration with cellulitis. HISTORY OF PRESENT ILLNESS: Please note that the patient is heavily sedated with Ativan, and is unable to give me a history. In fact, the patient was snoring the entire time I examined him and tried to interview him. PREVIOUS MEDICAL HISTORY: 1. Chronic alcoholism. 2. Chronic homelessness. 3. Atrial fibrillation. 4. Peripheral vascular disease. 5. ? hepatitis C with cirrhosis. PREVIOUS SURGICAL HISTORY: ORIF of the left ankle, unclear when that was done. Regarding his present issues, from what I can ascertain from the chart, the patient has been seen at multiple outside hospitals recently (please note, I did attempt to access [facility], but I was locked out given password problems, and there was no one at the help desk). By report of the nurse, the patient was at [facility] 1 or 2 weeks ago for IV antibiotics, and was discharged on oral antibiotics that he did not take. He apparently has a history of MRSA. The patient presented via EMS, complaining of worsening left lower extremity pain and purulent discharge, as well as foul smell. He was found to have a large nonhealing ulcer of the left lower extremity with surrounding erythema. He was admitted with a diagnosis of cellulitis and a nonhealing wound, and prescribed vancomycin, given his history of MRSA. A plain film of the left lower extremity revealed acute postoperative changes of ORIF noted in the left ankle with fixation of the medial and lateral malleoli with associated degenerative changes. I am now asked to assist in his management. As outlined above, the patient is heavily sedated with Ativan and not able to respond to my questioning. REVIEW OF SYSTEMS: Unobtainable. Previous medical history as outlined above. ALLERGIES: No known drug allergies. SOCIAL HISTORY: The patient, from what I understand, is homeless and drinks heavily. He, by report, lives in [place] usually. History of tobacco. MEDICATIONS: Presently include folate, flumazenil, Zofran, vitamin B1, vancomycin 1.5 g IV q.12 hours. FAMILY HISTORY: Unobtainable. PHYSICAL EXAMINATION: VITAL SIGNS: T-current 37.2 equals T-max, heart rate is 90, blood pressure 133/84, 94% on 3 L. GENERAL: Overweight male, somnolent and snoring, looks nontoxic. HEENT: Atraumatic, normocephalic. Pupils are equal, round, and reactive to light, some chemosis in the left and right eyes. Anicteric. Mucous membranes are dry. I cannot visualize his oropharynx. NECK : Supple. No sinus process tenderness. CARDIOVASCULAR: Faint 1/6 to 2/6 systolic ejection murmur heard best right, left upper sternal border, and left lower sternal border. No gallops or rubs. LUNGS: Clear to auscultation anterolaterally with no rales, rhonchi or wheeze. ABDOMEN: Soft. No organomegaly or tenderness to palpation. No stigmata of end-stage liver disease. EXTREMITIES: The patient has evidence of chronic venous stasis changes with brawny erythema of both lower extremities and exfoliative and crusting of his lower extremities. The left lower extremity is notable for a fairly extensive elliptical superficial ulceration on the lateral aspect of his left lower extremity with a clean base. Please note, it is not malodorous on exam. The smell is coming from the patient's feet. The ulcer has a clean bed, although there is some surrounding blanching erythema, left greater than right, and perhaps increased warmth. The erythema is throughout his lower extremity, however, and circumferential. It is not tender at all. The patient has good dorsalis pedis pulses bilaterally, and his lower extremities have 1+ pitting edema bilaterally. There is no significant swelling of the left compared with right, they are fairly symmetric. The patient has onychomycosis of his toenails. SKIN: Also notable for erythematous papules noted on his forearms and upper chest, and some on his face. There is a small patch of erythema on his abdomen. NEUROLOGIC: The patient is somnolent, but moving all 4 extremities when I try to arouse him. LABORATORY DATA: Microbiologic data: Blood cultures x2 are pending. By report , history of MRSA. White blood cell count of 3.7, hematocrit 41, platelet count of 65. Albumin of 3.8. CRP of less than 5. BUN and creatinine 12/0.8. AST 162, ALT of 71, alkaline phosphatase 74. Blood alcohol level of 361. RADIOGRAPHIC DATA: As outlined above. IMPRESSION: 68-year-old male with tobacco use disorder, homelessness, and longstanding alcohol abuse who presents with a nonhealing probable venous stasis ulceration of his left lower extremity. On my exam, the wound is not malodorous; the smell is coming from his feet and not the wound, per se. Although the surrounding soft tissue has blanching erythema, at this time, it is difficult to tease out a component of cellulitis versus his entire presentation being secondary to venous stasis. Suspect the latter. If no improvement on antibiotics in the next 24 hours, would discontinue Vancomycin as outlined below. PLAN: 1. The patient needs his left lower extremity elevated to decrease edema. 2. I have also asked nurse to give patient a thorough shower. 3. Continue Vancomycin for 1 more day, and if no change in the appearance of his lower extremity, discontinue antibiotics, as this entire presentation is likely secondary to chronic venous stasis. 4. As I am unable to access [facility], and the patient does have a history of MRSA , would initiate contact isolation as you are for now. 5. Given the patient has an unexplained erythematous rash on his upper extremities and chest; will obtain RPR and HIV antibody tests. Does not look like scabies. 6. In the setting of chronic hepatitis C, will obtain hepatitis A total antibody to ensure that he is immune to this entity given outbreak of hepatitis A among the homeless, and risk of fulminant hepatitis A with concomitant chronic hepatitis C. 7. Dr. Plaza will be consulted for wound care advice moving forward, although given the patient's complex social situation, he may not be adherent to her recommendations moving forward. Thank you very much for consulting Infectious Diseases. We will continue to follow this patient with you. /[id number]/MODL MTDD
--- NOTE | 2018-09-11 14:40 | GCON ---
[f rep st] CONSULTATION CONSULT NOTE DATE OF CONSULTATION: 09/11/2018 CHIEF COMPLAINT: Venous leg ulcer. Information is obtained from chart review as the patient is not speaking with me. HISTORY OF PRESENT ILLNESS: 68-year-old with history of peripheral vascular disease, cirrhosis, MRSA , nonhealing ulcers of left lower extremity, and atrial fibrillation, presents with pain. His blood alcohol level was 361 on admission and he is currently somnolent. He has some erythema around the wo und and I was asked to consult for wound care. PAST MEDICAL HISTORY: As above. SOCIAL HISTORY: Unable to be obtained. REVIEW OF SYSTEMS: Unable to be obtained. PHYSICAL EXAM: VITAL SIGNS: 37.2, 90, 133/84,20, 94% on 3 L. GENERAL: Lying in bed sleeping. Crespo s not arouse to voice or to stimuli. HEENT: Normocephalic. LUNGS: No increased work of breathing. CARDIAC: Afib. LEG: He has a dry wound with fibrin at the base on the left lower extremity and a nother wound distal to this. There is redness around the wound, but it does not appear to be acutely infected. IMPRESSION AND PLAN: Gary Hale is a 68-year-old man with history of peripheral vascular disease and possible venous insufficiency, who has nonhealing ulcers to his lower extremity. I did not feel comfortable debriding him as he was unable to consent for this procedure. I did place honey on the w ounds in hopes for autolytic debridement. I believe this could be done at bedside. He would benefit from regular wound care and to evaluate if he has venous insufficiency. Per report, he also has diogo sing challenges and so this may be difficult. We will continue to follow. /[id number]/MODL
[2018-09-11] MEDS: VANCOMYCIN 1.5 GM in NS 250 ML IV SCH (15:54)
[2018-09-11] MEDS: oxyCODONE IR 5 MG TAB PO PRN ×2 (18:37→22:51)
[2018-09-12] MEDS: VANCOMYCIN 1.5 GM in NS 250 ML IV SCH (04:00)
[2018-09-12] MEDS: oxyCODONE IR 5 MG TAB PO PRN ×6 (04:02→22:04)
[2018-09-12 05:08] LABS: HEPATITIS A ANTIBODY TOTAL NEGATIVE (NEGATIVE); HIV TYPE 1 AND 2 NEGATIVE (NEGATIVE)
[2018-09-12] MEDS: FOLIC ACID 1 MG TAB PO SCH (08:32)
[2018-09-12] MEDS: MULTIVITAMINS 1 EACH TAB PO SCH (08:32)
--- NOTE | 2018-09-12 11:46 | WOCRNPDOC ---
OZ Advanced Assessment Note - Skin Integrity Problem, Advanced Assess Left Lower Lateral Leg Exudate Amount: None Exudate Characteristic(s): Dried Kanika Wound Tissue: Scarred Wound Bed Constitution: Granulation Tissue (60%), Adhered Slough (40%) Wound Edges: Epithelizing, Attached Site Measurement - Head-to-Toe Length X Width X Depth (cm): 7x4.1x1 Skin Integrity Problem Comment: Per Annabel PRATT wound was mechanically debrided this morning by her. Wound bed is dried and per patient report painful. Covered wound with moistened saline. Wound care will follow and patient will follow up at outpatient wound healing center for follow up care. Ed IRELAND in room for care. Left Lateral Ankle Dressing Type: Open to Air Exudate Amount: None Exudate Characteristic(s): Dried Wound Bed Constitution: Red/[place] - Non Granular Tissue Site Measurement - Head-to-Toe Length X Width X Depth (cm): 1.2x1x0.5 Skin Integrity Problem Comment: Small full thickness wound with dried exudate. Unable to assess wound bed until it is remoistened. Wound care will follow this patient.
--- NOTE | 2018-09-12 14:18 | HOSPPROG ---
Hospitalist Progress Note Assessment/Plan: 68 yo M w/ hx of PVD, cirrhosis, MRSA, non-healing ulcer of LLE, and AF presents with cellulitis of non-healing ulcer. First encounter, chart reviewed. * LLE cellulitis w associated underlying venous insufficiency, non healing wound -appreciate surgery consult, may benefit from debridement -blood cx ngtd -Vancomycin -has hardware in place to the left ankle area -reviewed tib/fib x ray which shows edema -hx of MRSA *ETOH use -BAL 361 -CIWA, MVI, folate, thiamine *AMS -better -cont support *Cirrhosis,alcohol induce, hepatitis C *thrombocytopenia, leukopenia *homelessness -patient is disheveled *plan: continue abx for now, wound care, requires further IV abx and care in the hospital setting change to inpt status Subjective: No pain. Feeling a bit better. No withdrawl yet. Objective: Vital Signs Temp Pulse Resp BP Pulse Ox 36.6 C 60 18 142/87 H 94 09/12/18 12:00 09/12/18 12:00 09/12/18 12:00 09/12/18 12:00 09/12/18 12:00 09/11/18 09/12/18 09/13/18 05:59 05:59 05:59 Intake Total 1810 890 Output Total 1450 525 Balance 360 365 PT 15.6 SEC (12.0-15.0) H 09/11/18 03:15 INR 1.30 (0.83-1.16) H 09/11/18 03:15 - Physical Exam Constitutional: not in pain, chronically ill appearing, unkempt Eyes: PERRL, anicteric sclera, EOMI Ears, Nose, Mouth, Throat: moist mucous membranes, hearing normal, ears appear normal Cardiovascular: regular rate and rhythym, No JVD, No edema Respiratory: no respiratory distress, no rales or rhonchi, reduced air movement Gastrointestinal: normoactive bowel sounds, No tenderness, No ascites Skin: warm, normal color, No mottled Musculoskeletal: no joint effusions, pain with ROM, generalized weakness Psychiatric: not anxious, poor insight, poor judgement, poor memory ICD10 Worksheet Patient Problems: Problems Problem Status Onset Venous stasis ulcer Acute Alcoholic intoxication Acute
--- NOTE | 2018-09-12 15:16 | PDMN ---
Medical Necessity Medical necessity: [facility] [place] Cell[place]itis, A-2 days: 68 yo w/ LLE cellulitis w/ associated underlying venous insufficiency, non healing wound. Initially OBS for workup/tx but pt requires additional MN for surgical consult, possibly to OR for debridement, cont IV antibx, cont wound care. Hx homeless, cirrhosis, etoh abuse, MRSA, PVD, AF. Change to IP status 09/12/18@1420 per JUMP ROLL OPERATOR order.
--- NOTE | 2018-09-12 16:18 | ASMTCMCOM ---
CM Note CM Note Notes: Pt who is homeless, uses alcohol daily in w LLE cellulitis. Wound care and ID consulting. Pt currently on IV Vanco. No therapies ordered. CM to follow for d/c planning. Date Signed: 09/12/2018 04:18 PM Electronically Signed By:MIKE Calderon
[2018-09-12] MEDS: NICOTINE 21 MG/24 HR PATCH TD SCH (16:19)
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
[2018-09-12] MEDS: ACETAMINOPHEN 325 MG TAB PO PRN (22:04)
[2018-09-13] MEDS: oxyCODONE IR 5 MG TAB PO PRN ×4 (03:16→20:56)
[2018-09-13] MEDS: ACETAMINOPHEN 325 MG TAB PO PRN ×3 (03:16→15:13)
[2018-09-13] MEDS ORDERED: HEPATITIS A VIRUS VACCINE 1,440 UNIT/ML SYRINGE IM ONE (08:33)
[2018-09-13] MEDS: NICOTINE 21 MG/24 HR PATCH TD SCH (10:37)
[2018-09-13] MEDS: FOLIC ACID 1 MG TAB PO SCH (10:39)
[2018-09-13] MEDS: MULTIVITAMINS 1 EACH TAB PO SCH (10:39)
--- NOTE | 2018-09-13 11:10 | ASMTCMCOM ---
CM Note CM Note Notes: Pts case discussed w/ Анна Johnson NP. Pt does not medically need to be in the hospital at this time and Анна was planning on discharging him. CM met w/ pt and he would like to appeal his d/c. CM communicated this w/ Evelin. Pt reports that he can stay w/ his friend tomorrow in [place]. CM made pt an appointment w/ [facility] in [place]. Pt was current w/ Rafael Hanna at [facility]. Rafael is no longer with [facility]. CM provided pt w/ the appointment to see another provider. CM informed pt that if that appointment doesn't work with him he can reschedule it. CM provided pt w/ a bus pass. CM available for changes. Plan: Independent Please follow up with: [facility] [address], [place] [address] Dawna Bess, INTERLINE CLERK 09/16/18 at 10:20AM Please bring photo ID, insurance card, list of all meds, co pay and d/c paperwork. Date Signed: 09/13/2018 11:10 AM Electronically Signed By:JARED Puentes
--- NOTE | 2018-09-13 12:37 | HOSPPROG ---
Hospitalist Progress Note Assessment/Plan: 68 yo M w/ hx of PVD, cirrhosis, MRSA, non-healing ulcer of LLE, and AF presents with cellulitis of non-healing ulcer. * LLE cellulitis w associated underlying venous insufficiency, non healing wound -appreciate surgery consult -looks better -no infection -blood cx ngtd -has hardware in place to the left ankle area -hx of MRSA *ETOH use -BAL 361 -CIWA, MVI, folate, thiamine *AMS -better -cont support *Cirrhosis,alcohol induce, hepatitis C *thrombocytopenia, leukopenia *homelessness *plan: DC pt but appealing DC needs wound care outpt, arranged by CM D/W CM Hep A vaccine done Subjective: Not ready to leave. No other issues. Objective: Vital Signs Temp Pulse Resp BP Pulse Ox 37.1 C 77 14 150/100 H 91 L 09/13/18 08:00 09/13/18 08:00 09/13/18 08:00 09/13/18 08:00 09/13/18 08:00 09/12/18 09/13/18 09/14/18 05:59 05:59 05:59 Intake Total 1200 Output Total 2250 800 Balance -1050 -800 PT 15.6 SEC (12.0-15.0) H 09/11/18 03:15 INR 1.30 (0.83-1.16) H 09/11/18 03:15 - Physical Exam Constitutional: appears nourished, chronically ill appearing Eyes: PERRL, anicteric sclera Ears, Nose, Mouth, Throat: moist mucous membranes, hearing normal Cardiovascular: No JVD, No edema Respiratory: no respiratory distress, reduced air movement Gastrointestinal: No tenderness, No ascites Skin: warm, no rashes or abrasions Musculoskeletal: no joint effusions, generalized weakness Neurologic: AAOx3 Psychiatric: not anxious, not encephalopathic ICD10 Worksheet Patient Problems: Problems Problem Status Onset Venous stasis ulcer Acute Alcoholic intoxication Acute
[2018-09-14] MEDS: oxyCODONE IR 5 MG TAB PO PRN ×2 (02:55→08:47)
[2018-09-14] MEDS: THIAMINE HCL 100 MG TAB PO SCH ×2 (06:17→08:45)
[2018-09-14 08:09] VITALS: BP 145/90
[2018-09-14] MEDS: FOLIC ACID 1 MG TAB PO SCH (08:47)
[2018-09-14] MEDS: NICOTINE 21 MG/24 HR PATCH TD SCH (08:47)
[2018-09-14] MEDS: MULTIVITAMINS 1 EACH TAB PO SCH (08:47)
--- NOTE | 2018-09-14 09:06 | HOSPPROG ---
Hospitalist Progress Note Assessment/Plan: 68 yo M w/ hx of PVD, cirrhosis, MRSA, non-healing ulcer of LLE, and AF presents with cellulitis of non-healing ulcer. *initial concern for LLE cellulitis w associated underlying venous insufficiency , non healing wound -appreciate surgery consult -looks better -no infection -blood cx ngtd -has hardware in place to the left ankle area -hx of MRSA -needs good wound f/u care *ETOH use -BAL 361 -CIWA, MVI, folate, thiamine -no s/sx of withdrawal *AMS -resolved *Cirrhosis,alcohol induce, hepatitis C *thrombocytopenia, leukopenia *homelessness *plan: appealed dc yesterday, awaiting further input from CM Subjective: Sonny said his left lower ext is very painful Objective: Vital Signs Temp Pulse Resp BP Pulse Ox 36.7 C 76 18 145/90 H 92 09/14/18 08:00 09/14/18 08:00 09/14/18 08:00 09/14/18 08:00 09/14/18 08:00 09/13/18 09/14/18 09/15/18 05:59 05:59 05:59 Intake Total 1200 450 Output Total 2250 800 Balance -1050 -350 PT 15.6 SEC (12.0-15.0) H 09/11/18 03:15 INR 1.30 (0.83-1.16) H 09/11/18 03:15 - Physical Exam Constitutional: appears nourished, chronically ill appearing, uncomfortable Eyes: PERRL Ears, Nose, Mouth, Throat: hearing normal Cardiovascular: regular rate and rhythym Respiratory: no respiratory distress Skin: warm, other (left lower ext wound w packing in place, palpable pulses) Musculoskeletal: generalized weakness Neurologic: AAOx3 Psychiatric: interacting appropriately ICD10 Worksheet Patient Problems: Problems Problem Status Onset Alcoholic intoxication Acute Venous stasis ulcer Acute
--- NOTE | 2018-09-15 06:20 | GDS ---
[f rep st] DISCHARGE SUMMARY DISCHARGE DIAGNOSES: 1. Underlying venous insufficiency with a nonhealing wound. 2. Alcohol use with a blood alcohol level of 361. 3. Altered mental status. 4. Alcohol-induced cirrhosis and associated hepatitis C. 5. Thrombocytopenia, leukopenia. 6. Homelessness. CONSULTATIONS: During his stay: 1. Olena Baumann MD. 2. Bety Plaza MD. HOSPITAL COURSE: Briefly, the patient is a 68-year-old male who presented to the emergency room on September 11, 2018, with left lower extremity pain. He has a history of peripheral vascular disease, cirrhosis, MRSA, and a nonhealing ulcer. The initial concern was that he had a cellulitis of the left lower extremity. He was seen and evaluated by the surgical team and the infectious disease team who recommended good wound care. Antibiotics were discontinued. He has been given a place for followup wound care. HOSPITAL COURSE PER PROBLEM: 1. Venous insufficiency with a nonhealing wound. Appreciate Surgical and ID involvement. He has a history of MRSA. The main thing is good wound care. He has an appointment at [facility]. 2. Alcohol use. His BAL was 361. He was treated with multivitamins, folate and thiamine. He did not have any signs or symptoms of withdrawal. 3. Altered mental status. This is alcohol-induced, resolved. 4. Cirrhosis and hepatitis C. 5. Thrombocytopenia, leukopenia due to alcohol use. 6. Homelessness. He was given a place to stay this evening due to the cold weather. DISCHARGE CONDITION: Stable. Blood pressure is 145/90, O2 sats on room air 92% , respiratory rate is 18, pulse is 76, temperature 36.7 Celsius. MEDICATIONS AT DISCHARGE: Please see the EMR. DISCHARGE INSTRUCTIONS: 1. Recommending if at all a possibility for him to stay out of the cold. 2. It is important he gets good wound care in the outpatient setting. Greater than 30 minutes discharging and coordinating the patient's care. /[id number]/MODL MTDD
--- NOTE | 2018-09-19 12:10 | PQFORM ---
PHYSICIAN QUERY FORM Needs Your Response This query form is being sent to you to assure this patient record is coded properly. Please respond to the question below: MEAT LOINER QUESTION: Dear SANTA Mccurdy, For coding purposes (there is a different code choice for excisional versus non excisional debridement)- please clarify if the debridement done on 12 September 2018 was: ___~ Excisional _x__~ Non Excisional ___~ Other Thank You Daina Quispe, PET COUNSELOR HIM/Coding Dept. INSTRUCTIONS FOR RESPONSE: Answer question by clicking on the "Edit Document" button. Move cursor to area below the stars. When complete, hit "Save." Click on the "Sign" button, then click "Sign" again. Type in your PIN and hit "Enter." MTDD
== END 2018-09-14 12:47 | disposition home or self-care (01) | DRG 300 ==
LOC: EDUNIT# → F3N 06:13 → OBSVTOIN 09-12 14:20
PROVIDERS: ADMIT Student in an Organized Health Care Education/Training Program; ATTEND Student in an Organized Health Care Education/Training Program
PROC: 0JDP3ZZ Extraction of Left Lower Leg Subcutaneous Tissue and Fascia, Percutaneous Approach (ICD-10-PCS; principal; 2018-09-12)
DX: I87.2 Venous insufficiency (chronic) (peripheral) (principal); L97.929 Non-pressure chronic ulcer of unspecified part of left lower leg with unspecified severity; F10.229 Alcohol dependence with intoxication, unspecified; Y90.8 Blood alcohol level of 240 mg/100 ml or more; K70.30 Alcoholic cirrhosis of liver without ascites; B19.20 Unspecified viral hepatitis C without hepatic coma; D69.6 Thrombocytopenia, unspecified; I89.0 Lymphedema, not elsewhere classified; Z59.0 Homelessness; Z72.0 Tobacco use; Z86.14 Personal history of Methicillin resistant Staphylococcus aureus infection
CPT/HCPCS: 86708-90; 96365; 96366; G0378; G0480; J2060; J3370

== ENCOUNTER 2018-09-28 01:11 | Emergency (ER) | payer OTHER ==
--- NOTE | 2018-09-28 01:12 | EDPHY ---
H & P Time Seen by Provider: 09/28/18 01:12 HPI/ROS: HPI CHIEF COMPLAINT: Medical clearance for half-way, chronic left leg wound. HISTORY OF PRESENT ILLNESS: Patient is a 68-year-old male, he is brought to the emergency room for medical clearance for half-way. The patient has a chronic left lower extremity leg wound for which I have seen in the past. It has been going on for quite some time, he was actually admitted on September 12 for this and Infectious Disease and wound care saw him. He has venous insufficiency and chronic left lower extremity leg wound. He denies any new areas of concern. He states chronically there. He is not range his dressing in 3 days which he has been instructed for daily dressing changes. He denies fever chills. The patient's vital signs are stable here. He denies increasing pain. The dressing was taken down, he has a left lateral lower leg wound that is chronic in nature beefy red, there is some slough present, no significant tenderness on exam. No crepitus. This appears to be a chronic lesion. I did review this patient's previous infectious disease note, surgical no, wound care note, and hospitalist note. Patient is followed by wound care. Past Medical History: History venous insufficiency, alcoholism daily alcohol use, hepatitis-C, chronic left lower extremity leg wound. Past Surgical History: No recent surgery Social History: Homeless, daily alcohol use. Family History: Noncontributory ROS REVIEW OF SYSTEMS: 10 Systems were reviewed and negative with the exception of the elements mentioned in the history of present illness. Exam Constitutional triage nursing summary reviewed, vital signs reviewed, awake/ alert. Eyes normal conjunctivae and sclera, EOMI, PERRLA. HENT normal inspection, atraumatic, moist mucus membranes, no epistaxis, neck supple/ no meningismus, no raccoon eyes. Respiratory clear to auscultation bilaterally, normal breath sounds, no respiratory distress, no wheezing. Cardiovascular rate normal, regular rhythm, no murmur, no edema, distal pulses normal. Gastrointestinal soft, non-tender, no rebound, no guarding, normal bowel sounds, no distension, no pulsatile mass. Genitourinary no CVA tenderness. Musculoskeletal left lower extremity: Chronic left leg lateral ulcer, Chronic left lower extremity wound without any signs of superinfection, it is red, there is some slough present, no significant tenderness on exam. Swelling noted. Appears chronic. no midline vertebral tenderness, full range of motion, no calf swelling, no tenderness of extremities, no meningismus, good pulses, neurovascularly intact. Skin pink, warm, & dry, no rash, skin atraumatic. Neurologic awake, alert and oriented x 3, AAOx3, moves all 4 extremities equally, motor intact, sensory intact, CN II-XII intact, normal cerebellar, normal vision, normal speech. Psychiatric normal mood/affect. Heme/Lymph/Immune no lymphadenopathy. Differential Diagnosis: Includes but is not limited to in a particular order chronic left lower extremity leg wound. Chronic venous insufficiency, cellulitis. Medical Decision Making: Plan for this patient will re-dress his wound, he can be medically cleared for half-way he appears well nontoxic in no acute distress he does not have a fever. His left leg wound has been a chronic issue for him. I do encourage him after gets released from half-way to follow up closely with wound care Patient states he was supposed to be taking Bactrim but never took it. Re-evaluation: Patient reports to me that he has not seen wound care in 2 weeks. Patient reports to me is was do daily dressing changes but has not done so in 3 days He additionally reports to me did not take his Bactrim as is last prescribed. I had a long conversation with the patient to recommend that he keep his leg elevated, compression dressing, follows up with wound care closely, additionally I will prescribe him Bactrim. His wound does not appear overtly infected to me it appears a chronic ulcerated wound. I do recommend that he tends to it carefully with wound care. He understands this I do feel comfortable allowing him to go to half-way as he is afebrile nontoxic- appearing, I do not appreciate a significant infection to his left lower leg. This appears to be a chronic venous ulcer. And needs daily wound care and attention. Source: Patient, Police - Personal History Tetanus Vaccine Date: 2015 - Medical/Surgical History Hx Asthma: No Hx Chronic Respiratory Disease: No Hx Diabetes: No Hx Cardiac Disease: No Hx Renal Disease: No Hx Cirrhosis: No Hx Alcoholism: No Hx HIV/AIDS: No Hx Splenectomy or Spleen Trauma: No Other PMH: 1. Peripheral vascular disease. 2. Chronic venous stasis ulceration of lower extremities. 3. Alcoholism. 4. Tobacco abuse - Social History Smoking Status: Current every day smoker Constitutional: Initial Vital Signs Temperature (C) 36.2 C 09/28/18 01:15 Heart Rate 72 09/28/18 01:15 Respiratory Rate 16 09/28/18 01:15 Blood Pressure 136/84 H 09/28/18 01:15 O2 Sat (%) 96 09/28/18 01:15 O2 Delivery Mode Room Air Allergies/Adverse Reactions: No Known Allergies Allergy (Verified 09/28/18 01:12) Home Medications: Medication Instructions Recorded oxyCODONE HCL [Oxycodone HCl] 10 mg PO TID PRN 09/11/18 Acetaminophen [Tylenol 325mg (*)] 650 mg PO Q4HRS PRN tab 09/13/18 Folic Acid [Folic Acid 1 MG (*)] 1 mg PO DAILY tab 09/13/18 Multivitamins [Multivitamin (*)] 1 each PO DAILY tab 09/13/18 Nicotine [Nicoderm Cq 21 mg (*)] 21 mg TD DAILY patch 09/13/18 Thiamine HCl [Vitamin B-1] 100 mg PO DAILY tab 09/13/18 Sulfamethox/Tmp 800/160 mg 1 tab PO BID@1000,2200 #14 tab 09/28/18 [Bactrim Ds] Departure - Departure Disposition: Home, Routine, Self-Care Clinical Impression: Venous stasis ulcer Condition: Good Instructions: Stasis Dermatitis (ED) Additional Instructions: 1. You need to follow up with wound care. 2. Daily dressing changes. 3. Antibiotics as prescribed 4. Medically cleared for half-way. Referrals: NONE *PRIMARY CARE P,. [Primary Care Provider] - As per Instructions [facility] [Clinic] - As per Instructions Prescriptions: Sulfamethox/Tmp 800/160 mg [Bactrim Ds] 1 tab PO BID@1000,2200 #14 tab
[2018-09-28 01:17] VITALS: BP 136/84
== END 2018-09-28 02:00 | disposition home or self-care (01) ==
DX: L97.929 Non-pressure chronic ulcer of unspecified part of left lower leg with unspecified severity (principal); I87.2 Venous insufficiency (chronic) (peripheral); I73.9 Peripheral vascular disease, unspecified; Z59.0 Homelessness